=== PATIENT | female | born 1975 | race Caucasian/White ===

== ENCOUNTER 2017-07-11 08:35 | Day surgery (SDC) | payer BC ==
--- NOTE | 2017-07-10 10:06 | HP ---
HISTORY OF PRESENT ILLNESS: The patient is a 41-year-old right hand dominant female who injured her left elbow approximately 4 days ago while ice skating with her daughter and falling. She was seen in the emergency room, found to have a fracture, was splinted and referred to my office. PAST MEDICAL HISTORY: The patient is otherwise in good health. CURRENT MEDICATIONS: Normally takes no routine medications. ALLERGIES: She has no known allergies. FAMILY HISTORY/SOCIAL HISTORY/REVIEW OF SYSTEMS: Otherwise, unremarkable. The patient is normally q uite active. PHYSICAL EXAMINATION: GENERAL: Reveals a healthy female. HEENT: Unremarkable. NECK: Supple. CHEST: Clear. HEART: Regular rate and rhythm. ABDOMEN: Soft, nontender. PELVIC/RECTAL/BREAST: Exams are deferred. EXTREMITIES: Pertinent findings are to the left upper extremity. There is moderate swelling, bruisi ng about the left elbow. There is tenderness over the olecranon. There is no definite deformity. R mary carmen of motion is limited secondary to pain. There is weakness of extension. Neurovascular exam is intact. There is moderate swelling extending into her hand. There are palpable distal pulses. Neur ovascular exam is intact. X-RAY FINDINGS: X-rays of the left elbow reveal mildly displaced fracture of the left olecranon. Th ere is slight spurring of the coronoid process. IMPRESSION: Fracture, left olecranon. PLAN: Open reduction internal fixation. The nature of the surgery, length of recovery, and potentia l complications such as infection, loss of motion, incomplete relief, delayed or nonunion, neurovascu lar injury, possible need to remove the implants at a later date and need for additional treatment or repeat surgery have been discussed in detail.
[2017-07-10 14:03] VITALS: BMI 24.3
[2017-07-11] MEDS ORDERED: CEFAZOLIN/Water 2 GM/20 ML SYRINGE ONE (09:25)
[2017-07-11] MEDS ORDERED: Fentanyl 100 MCG/2 ML VIAL ONE ×2 (09:50→12:04)
[2017-07-11] MEDS ORDERED: Midazolam HCl 2 mg/2 ml Vial ONE (09:51)
[2017-07-11] MEDS ORDERED: Ondansetron HCl/PF 4 MG/2 ML Vial ONE ×2 (09:52→11:09)
[2017-07-11] MEDS ORDERED: Metoclopramide HCl 10 MG/2 ML VIAL ONE ×2 (09:52→11:09)
[2017-07-11] MEDS ORDERED: PROPOFOL 200 MG/20 ML VIAL ONE (11:09)
[2017-07-11] MEDS ORDERED: Dexamethasone 20 MG/5 ML VIAL ONE (11:09)
[2017-07-11] MEDS ORDERED: Lidocaine 1% PF 5 ML VIAL ONE (11:09)
[2017-07-11] MEDS ORDERED: Ketorolac Tromethamine 30 MG/ML VIAL ONE (11:09)
[2017-07-11] MEDS ORDERED: ePHEDrine/0.9% NaCl/PF SYRINGE 50 mg/10 ml ONE (11:09)
[2017-07-11] MEDS ORDERED: Succinylcholine Chloride 20 MG/ML 10 ml SYRINGE FS ONE (11:09)
--- NOTE | 2017-07-11 12:50 | OP ---
DATE OF PROCEDURE: 07/11/2017 SURGEON: Bhupendra Ferguson M.D. AUDIO PRODUCTION MANAGER: Hubert Fuentes ANESTHESIA: General. PREOPERATIVE DIAGNOSIS: Fracture, left olecranon. POSTOPERATIVE DIAGNOSIS: Fracture, left olecranon. PROCEDURE: Open reduction and internal fixation of the olecranon fracture with cannulated 6.5 Synthe s cancellous screw, 105 mm. NARRATIVE REPORT: After satisfactory anesthesia was induced in the supine position, the patient was placed in the lateral decubitus position, this position held with a harrison bag. She was prepped and dr aped in routine sterile fashion and the arm placed over a bolster. The left arm was elevated and exs anguinated with an Esmarch bandage, and the tourniquet inflated to 250 mmHg. A longitudinal incision was made from just proximal to the olecranon to the proximal third of the ulnar shaft, carried down subcutaneous tissues. Bleeding points controlled with Bovie cautery. The fracture site was identifi ed and subperiosteally exposed and cleaned of all soft tissue and debris. The fracture length could be reduced and held with bone holding forceps. A K-wire was then drilled up on the tip of the olecra non after making a small stab wound in the triceps mechanism down the shaft, across the fracture, and this appeared to be in good position. This was then overdrilled with a cannulated drill and then th e guide pin for the Synthes 6.5 cannulated screws was then drilled gently across the fracture site do wn the shaft of the humerus and there was good position of the fracture and good position of the guid e pin by image intensifier. The tap for the screw was then placed across the fracture site along the guide pin until there was good cortical fixation distally. It was determined that a 105 mm long thr ead cannulated screw would be appropriate. After removing the tap, the screw was then placed over th e guide pin until there was good purchase. The guidepin was removed and the bone holding forceps wer e removed. There appeared to be good fracture reduction, which was stable, and there was good fractu re reduction by image intensifier and good screw placement. Hard copies were made. The wound was th en copiously irrigated. The periosteum was closed with interrupted #1 Vicryl as was the small stab w ound in the triceps. Subcutaneous tissue was closed with interrupted 2-0 Vicryl and the skin closed with a staple gun. Sterile bulky compressive dressing was applied and tourniquet deflated and the hector nd promptly pinked up. The patient was then immobilized in a long arm plaster splint and arm sling. She was awakened and taken to recovery room in stable condition. There were no apparent intraoperat matilde complications. ESTIMATED BLOOD LOSS: Minimal. The patient will be discharged home in satisfactory condition and she was instructed on ice and eleva tion. She was given written cast care instructions. She is given a prescription for [place] 10 for pa in, 60 tablets. She will be rechecked in my office in approximately 2 weeks or sooner if there any p roblems prior to that time.
[2017-07-11] MEDS ORDERED: HYDROcodone/Acetaminophen 5/325 mg Tablet ONE (13:16)
--- NOTE | 2017-07-11 17:12 | RAD ---
LEFT ELBOW THREE VIEWS: 07/11/17 HISTORY: 41-year-old female status post ORIF left elbow. Metal screw has been placed stabilizing the olecranon of the ulna. No prior presurgical radiographs a re available for comparison. IMPRESSION: Internal fixation with metal screw of the olecranon and proximal ulna. No prior radiographs. POS: [facility]
== END 2017-07-11 14:15 | disposition home or self-care (01) ==
LOC: SDC 08:35
PROVIDERS: ATTEND Orthopaedic Surgery
PROC: 0PSL04Z Reposition Left Ulna with Internal Fixation Device, Open Approach (ICD-10-PCS; principal; 2017-07-11)
DX: S52.022A Displaced fracture of olecranon process without intraarticular extension of left ulna, initial encounter for closed fracture (principal); W00.0XXA Fall on same level due to ice and snow, initial encounter; Y93.21 Activity, ice skating
CPT/HCPCS: 76001; 96374; C1713; C1769; J0131; J1100; J1885; J2001; J2250; J2405; J2704; J2765; J3010

== ENCOUNTER 2017-12-13 09:31 | Outpatient (CLI) | payer BC | END 2017-12-13 09:32 | disposition home or self-care (01) | LOC: BICMAMMO 09:31 | PROVIDERS: ATTEND Obstetrics & Gynecology | DX: Z12.31 Encounter for screening mammogram for malignant neoplasm of breast (principal) | CPT/HCPCS: 77063; 77067 ==